=== PATIENT | female | born 1985 | race Caucasian/White ===

== ENCOUNTER 2017-06-21 12:00 | Outpatient (CLI) | payer OTHER ==
[2017-06-21 13:44] LABS: MEAN CORPUSCULAR HEMOGLOBIN 30.7 pg (27.0-31.0); MEAN CORPUSCULAR HGB CONC 34.2 g/dL (32.0-36.0); MEAN CORPUSCULAR VOLUME 89.8 fL (81.0-99.0); MEAN PLATELET VOLUME 8.3 fL (7.9-10.8); RED BLOOD COUNT 3.91 10^6/uL (4.20-5.40); RED CELL DISTRIBUTION WIDTH 13.5 % (12.0-15.0); WHITE BLOOD COUNT 13.7 x10^3/uL (4.8-10.8)
== END 2017-06-21 12:01 | disposition home or self-care (01) ==
LOC: LAB 12:00
PROVIDERS: ATTEND Registered Nurse
DX: Z34.82 Encounter for supervision of other normal pregnancy, second trimester (principal)
CPT/HCPCS: 36415; 82950; 86850

== ENCOUNTER 2017-07-12 07:51 | Outpatient (CLI) | payer OTHER | END 2017-07-12 07:52 | disposition home or self-care (01) | LOC: LAB 07:51 | PROVIDERS: ATTEND Registered Nurse | DX: R73.02 Impaired glucose tolerance (oral) (principal) | CPT/HCPCS: 36415; 82951 ==

== ENCOUNTER 2017-08-09 09:42 | Outpatient (CLI) | payer OTHER | END 2017-08-09 09:43 | disposition home or self-care (01) | LOC: LAB.R 09:42 | PROVIDERS: ATTEND Registered Nurse | DX: Z36.85 Encounter for antenatal screening for Streptococcus B (principal) | CPT/HCPCS: 87081 ==

== ENCOUNTER 2017-08-31 11:18 | Inpatient (IN) | payer OTHER ==
[2017-08-31 12:02] LABS: RUPTURE OF MEMBRANES PLUS POSITIVE (NEGATIVE)
[2017-08-31] MEDS ORDERED: SODIUM CHLORIDE FLUSH 0.9% 10 ML SYRINGE IVP PRN (14:11)
[2017-08-31] MEDS ORDERED: ONDANSETRON 4 MG/2 ML VIAL IVP PRN (14:11)
[2017-08-31] MEDS ORDERED: NALBUPHINE 20 MG/ML AMP IVP PRN (14:18)
--- NOTE | 2017-08-31 14:30 | HISTORY & PHYSICAL EXAMINATION ---
Admit History - Instructions [place]/Slash: -Left hand click circles element as positive or present. -Right hand click slashes element as negative or not present. - Visit Reason Visit Reason: Membranes rupture (08/31/2017 @ 00:00) - : 1 Parity: 0 Premature: 0 Ectopic: 0 : 0 Care: positive: [facility] (9 visits; total visits: 11), [facility] ( transfer of care @ 23 weeks' gestation: 2 visits there) Risk/History: positive: None Complications This : positive: None Smoking Status: Never smoker - Mother's Labs Mother's Blood Type: positive: A Mother's RH: positive: Positive GBS: positive: Group B Step Negative Rubella Status: positive: Immune Physical - Abdominal Exam Vital Signs: Temp Pulse Resp BP Pulse Ox 36.7 C 110 H 18 123/69 99 08/31/17 11:39 08/31/17 11:39 08/31/17 11:39 08/31/17 11:39 08/31/17 11:39 Contraction Frequency (min/apart): rare Contraction Intensity: positive: Mild Uterine Resting Tone: positive: Soft - Monitoring Heart Rate Baseline: 145 Strip Review: positive: Category I - Presentation Presentation: positive: Vertex - Vaginal Exam Membranes: positive: Membranes ruptured (ROM + positive) Dilation (in cm): deferred secondary to PROM, no labor - Speculum Exam Speculum Exam Performed: positive: No Findings: positive: Gross leak, Other (ROM + positive) - Other Notes Labor Progress Note/Additional Text: Alisa Arnett is a 31 yo @ 39w1d by first trimester US, consistent w/ menstrual dating. She received care at [facility] beginning at 10 weeks' gestation & was seen there for 2 visits prior to transferring care to [facility], where she was seen for 9 visits. She gained 31 pounds throughout her & had an uneventful course w/ all labs WNL & FAS WNL. She screened negative for GBS @ 36 weeks' getation. She presents today w/ complaint of LOF, which began slowly @ 00:00 & has continued since. CAF noted & ROM + testing positive. She has had an occasional contraction since that time , no vaginal bleeding, +FM. She is not uncomfortable. She strongly desires a low intervention labor/delivery & is hoping for an unmedicated . She is well-supported by her , Saud. She underwent SVE w/ membrane stripping on 08/27/17 & was at that point 3. PMH: anxiety & depression for which she is presently untreated; anxious t/o , declined intervention; pityriasis rosea w/o persistent s/sx PSH: none SocHx: denies tobacco/ETOH/drugs; to Saud, who is , denies DV; works f/t as an occupational therapist; hx depression/anxiety w/o tx @ present; plans to relocate to [place] shortly s/p delivery Gynhx: hx recurrent vulvovaginal aj, no hx STI OBhx: primiparous ROS: GEN: +FATIGUE, NO FEVER/CHILLS HEENT: DENIES TAO/VISION CHANGES RESP: DENIES SOB/DYSPNEA/WHEEZING/COUGH CARDIAC: DENIES CP/SOB/PALPITATIONS GI: SOME DIARRHEA, NO N/V : +LOF, NO BLEEDING, NO LESIONS, NO ABNORMAL D/C OB: OCC CONTRACTION, MINIMALLY UNCOMFORTABLE, +LOF, NO VAGINAL BLEEDING, +FM MS: LUMBAR PAIN, NO SWELLING, FROM SKIN: DENIES LESION, NO PRURITUS NEURO: NO NUMBNESS/TINGLING/WEAKNESS PSYCH: +ANXIOUS, NO DEPRESSION PE: GEN: AAOX3, ANXIOUS GRAVID FEMALE HEENT: GROSSLY NORMOCEPHALIC, ATRAUMATIC RESP: LUNGS B/L CTA T/O CARDIAC: RRR NLS1S2, NO MURMUR GI: ABD GRAVID, NT, ND, PALPABLE MOVEMENT, LIE LONGITUDINAL, PRESENTATION CEPHALIC, EFW 7# : NO LESION, +GROSS LEAKAGE OF CAF, NO BLEEDING OB: EFM: BL 145BPM, + ACCELS, NO DECELS, MOD XIN; TOCO: OCC UC, PALPABLY MILD; SVE DEFERRED SECONDARY TO UNFAVORABLE 4 DAYS AGO & ROM X14.5 HOURS MS: FROM T/O, NO EDEMA, NO ERYTHEMA SKIN: NO LESION, C/D/I, WARM, WELL-PERFUSED NEURO: NO FOCAL DEFICIT PSYCH: ANXIOUS, OTHERWISE NORMAL MOOD/AFFECT Plan for Labor - Plan For Labor Plan for Labor: ASSESSMENT: 31 Y/O @ 39W1D W/ PROM X14.5 HOURS, GBS NEG, AFEBRILE FHTS CAT I ADEQUATE PAIN CONTROL W/O ANALGESIA/ANESTHESIA DESIRES LIMITED INTERVENTION PLAN: 1. REVIEWED ALL OPTIONS FOR MANAGEMENT, INCLUDING ACOG RECOMMENDATION FOR IMMEDIATE IOL S/P ROM 2. REVIEWED RATIONALE FOR IOL S/P ROM & IMPLICATIONS OF PROM, NO LABOR @ THIS POINT 3. REVIEWED OPTIONS FOR IOL, RISKS/BENEFITS/MOA/SE PROFILE/ALTERNATIVES, PT ELECTS BUCCAL MISOPROSTOL ADMINISTRATION, WILL BEGIN 25MCG BC Q 4 HOURS 4. PT DESIRES UNMEDICATED DELIVERY, REVIEWED ALL OPTIONS FOR PAIN MANAGEMENT 5. REVIEWED RISK FOR INFECTION & PREVENTION OF INFECTION, REVIEWED MINIMAL SVE, NO BASELINE CERVICAL EXAM 6. REVIEWED OPTIMAL MATERNAL POSITIONING 7. ASSESS CERVICAL STATUS W/ CLINICAL INDICATION, NOT OTHERWISE 8. ADMIT
[2017-08-31] MEDS: miSOPROStol 100 MCG TABLET BC SCH (15:26)
[2017-08-31] MEDS: SODIUM CHLORIDE FLUSH 0.9% 10 ML SYRINGE IVP SCH (17:25)
[2017-08-31 17:48] LABS: BASOPHILS % (AUTO) 0.2 %; EOSINOPHILS # (AUTO) 0.1 10^3/uL (0.0-0.7); EOSINOPHILS % (AUTO) 0.5 %; HGB - HEMOGLOBIN 12.9 g/dL (12.0-16.0); LYMPHOCYTES # (AUTO) 1.6 10^3/uL (1.5-3.5); LYMPHOCYTES % (AUTO) 11.2 %; MEAN CORPUSCULAR HEMOGLOBIN 28.8 pg (27.0-31.0); MEAN CORPUSCULAR HGB CONC 32.9 g/dL (32.0-36.0); MEAN CORPUSCULAR VOLUME 87.7 fL (81.0-99.0); MEAN PLATELET VOLUME 9.4 fL (7.9-10.8); MONOCYTES # (AUTO) 1.2 10^3/uL (0.0-1.0); MONOCYTES % (AUTO) 8.5 %; NEUTROPHILS # (AUTO) 11.1 10^3/uL (1.5-6.6); NEUTROPHILS % (AUTO) 79.6 %; PLT - PLATELET COUNT 164 10^3/uL (130-450); RED BLOOD COUNT 4.47 10^6/uL (4.20-5.40); RED CELL DISTRIBUTION WIDTH 13.9 % (12.0-15.0)
--- NOTE | 2017-08-31 23:50 | PROVIDER PROGRESS NOTE ---
Labor Progress Note - Uterine Monitoring Uterine Monitoring Mode: positive: Palpation Contraction Frequency (min/apart): 2 Contraction Intensity: positive: Strong Uterine Resting Tone: positive: Soft - Monitoring Monitor Mode: positive: Doppler/auscultation (No decreases heard, increases heard, reassuring) Heart Rate Baseline: 130 - Vaginal Exam Dilation (in cm): 8 Effacement (%): 100 Station: 1 Cervical Position: Anterior (per RN, change from 5/100/0 @ 22:15) - Labor Progress Note Labor Progress Note/Additional Text: S: Alisa is increasingly uncomfortable, reporting urge to push w/ uterine contractions. She is standing & rocking, using diversionary activity to cope w / her contractions. She is well-supported by her , Saud, and her hired auto self service station attendant, Sylvie. O: VS: T 98.5, HR 99, BP 120/84, RR 18 Doptones: 130s baseline, no decreases heard, increases heard Uterine contractions strong by palpation, occurring q2-3 min, lasting 90 seconds SVE per RN: 8/100/+1, changed from 5/100/0 over the course of 1.5 hours (22:15- 23:45) A: 31 y/o @ 39w1d by 1st trimester US in active spontaneous labor s/p sinle dose buccal misoprostol 25mcg @ 1500 SROM for CAF @ 00:00, for a total ruptured duration of 23 hours, 45 minutes, afebrile GBS negative FHTs reassuring by intermittent auscultation Adequate pain control w/ diversionary activity, does not desire analgesia/ anesthesia Rapid, progressive cervical change P: 1. Labor support t/o transition phase 2. Anticipate 2nd stage labor shortly 3. Ongoing careful monitoring of maternal temperature, FHTs
[2017-09-01] MEDS ORDERED: OXYTOCIN 10 UNIT/ML VIAL ONE (00:02)
[2017-09-01] MEDS ORDERED: LIDOCAINE 1% 50 ML MDV ONE (00:03)
--- NOTE | 2017-09-01 01:15 | PROVIDER PROGRESS NOTE ---
Labor Progress Note - Uterine Monitoring Uterine Monitoring Mode: positive: Palpation Contraction Frequency (min/apart): 5-7 Contraction Intensity: positive: Moderate to strong Uterine Resting Tone: positive: Soft - Monitoring Monitor Mode: positive: Doppler/auscultation (+ increases, no decreases) Heart Rate Baseline: 140 - Vaginal Exam Dilation (in cm): 10 Effacement (%): 100 Station: 0 (caput @ +1, position TRACIE) - Labor Progress Note Labor Progress Note/Additional Text: Alisa has been pushing w/ limited effort over a period of 1.25 hours w/ minimal descent. FHTs are consistently reassuring by doppler auscultation. Uterine contractions have become less frequent. Alisa declines anesthesia/analgesia. Will augment w/ Pitocin per protocol if no further descent by 2 hours s/p complete dilatation. SROM x25.25 hours, afebrile.
[2017-09-01] MEDS ORDERED: OXYTOCIN/SODIUM CHLORIDE 500 ML IV ONE (01:19)
[2017-09-01] MEDS ORDERED: LACTATED RINGERS 1,000 ML IV ONE ×3 (01:20→05:17)
--- NOTE | 2017-09-01 02:32 | PROVIDER PROGRESS NOTE ---
Labor Progress Note - Uterine Monitoring Uterine Monitoring Mode: positive: Palpation Contraction Frequency (min/apart): 2-5 Contraction Intensity: positive: Moderate Uterine Resting Tone: positive: Soft - Monitoring Monitor Mode: positive: Doppler/auscultation (+increases, +decreases to 110s @ peak of uterine contraction, return to 130bpm by cessation of uterine contraction) Heart Rate Baseline: 130 - Vaginal Exam Dilation (in cm): 10 Effacement (%): 100 Station: 0 (caput @ +1) - Labor Progress Note Labor Progress Note/Additional Text: Alisa has been pushing w/ sporadic strong effort x2.5 hours w/ minimal descent. She was initially resistant to Pitocin augmentation & now is in agreement. FHTs by intermittent auscultation have been reassuring to this point. She has been ruptured for a total of 26.5 hours & is afebrile, GBS negative. position is TRCAIE, significant caput, minimal molding. Reviewed implications of present clinical scenario w/ pt & partner. Hi Low Truck Driver counseling patient regarding positioning, reviewed that she has pushed in all positions without significant impact on either expulsive effort or descent. Will begin Pitocin infusion @ 2mU/min & titrate to effective contraction pattern, CEFM & tocometry now indicated. Pt declines analgesia/anesthesia @ this time.
[2017-09-01] MEDS: OXYTOCIN/SODIUM CHLORIDE 500 ML IV SCH (02:51)
--- NOTE | 2017-09-01 03:09 | PROVIDER PROGRESS NOTE ---
Labor Progress Note - Uterine Monitoring Uterine Monitoring Mode: positive: External toco Contraction Frequency (min/apart): 2-4 Contraction Intensity: positive: Moderate Uterine Resting Tone: positive: Soft - Monitoring Monitor Mode: positive: External ultrasound Heart Rate Baseline: 130 Heart Rate Variability: positive: Moderate (6-25 bmp) Accelerations: positive: Present, 15x15 Decelerations: positive: Early Strip Review: positive: Category I - Vaginal Exam Dilation (in cm): 10 Effacement (%): 100 Station: 0 (caput @ +1) - Labor Progress Note Labor Progress Note/Additional Text: Alisa has been actively pushing [id number], 7 minutes w/o descent beyond 0 station; significant caput, minimal molding. Pitocin infusing @ 4mU/min, FHTs cat I w/ early decelerations w/ expulsive efforts. Alisa is exhausted, despite being well-supported by her & her forest scientist. She will receive epidural anesthesia. Consult w/ Dr. Brandon MD, back-up HAT STEAMER, who concurs w/ epidural placement, IUPC placement & titration of Pitocin to achieve adequate contraction pattern by MVU, reassess x2 hours s/p achievement of adequate labor , earlier if clearly adequately laboring by MVU w/ placement of IUPC. Anesthesia notified, epidural requested & bolus infusing. Reviewed plan of care w/ pt, partner, curtis, RN @ bedside; all in agreement, without concerns.
[2017-09-01] MEDS ORDERED: ROPIVACAINE 0.5% PF 20 ML AMPULE ONE (03:24)
[2017-09-01] MEDS ORDERED: fent/BUPIV 2 MCG/0.125% 0 ML EP ONE (03:30)
--- NOTE | 2017-09-01 04:27 | PROVIDER PROGRESS NOTE ---
Labor Progress Note - Uterine Monitoring Uterine Monitoring Mode: positive: External toco Contraction Frequency (min/apart): 1-2 Contraction Intensity: positive: Moderate to strong Uterine Resting Tone: positive: Soft - Monitoring Monitor Mode: positive: External ultrasound Heart Rate Baseline: 120 Heart Rate Variability: positive: Moderate (6-25 bmp) Accelerations: positive: Present, 15x15 Decelerations: positive: Late (to naila in 80s) Strip Review: positive: Category II - Vaginal Exam Dilation (in cm): 10 Effacement (%): 100 Station: 0 - Labor Progress Note Labor Progress Note/Additional Text: Alisa has been actively pushing x3.5hrs without descent beyond 0 station. Anesthesia attempted x6 to place epidural w/o success. Pt received 5mg nubain IVP w/ some effect. Variability remains moderate, non-repetitive late decelerations; no evidence of hypoxemia @ this time. FSE placed w/o difficulty. Pt w/ ongoing urge to push. 2nd anesthesia provider called to come to hospital for evaluation & attempt to place epidural. Dr. Brandon MD, aware of clinical scenario, called to hospital to evaluate for 2nd stage arrest. Encouraged pt to breathe through contractions w/o expulsive efforts as much as she is able.
--- NOTE | 2017-09-01 04:52 | PROVIDER PROGRESS NOTE ---
Labor Progress Note - Uterine Monitoring Uterine Monitoring Mode: positive: External toco Contraction Frequency (min/apart): 1-2 Contraction Intensity: positive: Moderate to strong Uterine Resting Tone: positive: Soft - Monitoring Monitor Mode: positive: Spiral electrode Heart Rate Baseline: 135 Heart Rate Variability: positive: Moderate (6-25 bmp) Accelerations: positive: Present, 15x15 Decelerations: positive: Late (isolated prolonged deceleration s/p contraction w/ expulsive effort to naila in 60s w/ return to baseline w/ intrauterine resuscitative measures) Strip Review: positive: Category II - Vaginal Exam Dilation (in cm): 10 Effacement (%): 100 Station: 0 (caput @ +1) - Labor Progress Note Labor Progress Note/Additional Text: Alisa continues to push w/ uterine contractions. Dr. Brandon MD, @ bedside to evaluate. 2nd anesthesia provider present to attempt epidural placement. During consultation, pt experienced FHT deceleration s/p expulsive effort to naila in 60s w/ return to baseline over a period of 100 seconds w/ intrauterine resuscitative efforts. Terbutaline 0.25mg SQ x1 administered. No further descent s/p 4 hours of active pushing. Will proceed to c/s--anesthesia to attempt to place spinal for surgery--if unsuccessful, will perform under general. Dr. Brandon MD, @ bedside, consenting patient for operative delivery.
[2017-09-01] MEDS ORDERED: TERBUTALINE 1 MG/ML VIAL SUBQ ONE ×2 (04:53→05:40)
[2017-09-01] MEDS ORDERED: CITRIC ACID/SODIUM CITRATE 15 ML UDC PO ONE (05:02)
[2017-09-01] MEDS ORDERED: BUPIVACAINE 0.5% PF 10 ML VIAL ONE (06:31)
[2017-09-01] MEDS ORDERED: BUPIVACAINE 0.5% PF 10 ML VIAL IM ONE (06:31)
[2017-09-01] MEDS ORDERED: EPINEPHrine 1 MG/ML AMP SUBQ ONE (06:31)
[2017-09-01] MEDS ORDERED: EPINEPHrine 1 MG/ML AMP ONE (06:38)
[2017-09-01] MEDS ORDERED: diphenhydrAMINE 25 MG CAPSULE PO PRN (06:56)
[2017-09-01] MEDS ORDERED: SODIUM CHLORIDE FLUSH 0.9% 10 ML SYRINGE IVP PRN (06:56)
[2017-09-01] MEDS ORDERED: oxyCODONE 5 MG TABLET PO PRN (06:56)
[2017-09-01] MEDS ORDERED: HYDROmorphone PCA 20MG/100ML IV PRN (07:04)
--- NOTE | 2017-09-01 07:14 | DELIVERY NOTE ---
Delivery Note - Labor Labor: positive: Augmented by oxytocin - Delivery Method Delivery Method: positive: Primary - Presentation Presentation: positive: Vertex, GRETTA - left occiput anterior, TRACIE - right occiput anterior - Nuchal Cord Nuchal Cord: positive: None (Cord was over the right shoulder) - Anesthetic Anesthetic Type: Anesthetic: positive: Bupivicaine - 0.5% plain (with Epi) Volume: positive: Other (20 ml) - Amniotic Fluid Description Amniotic Fluid Description: positive: Clear - Delivery Outcome Delivery Outcome: positive: Livebirth - [place]: positive: Stimulated, Warmed [place] sex: positive: Female (Apgars 6/9 weight 6 lb 12 oz) - Cord Cord: positive: 3 vessels - Placenta Placenta: positive: Intact, Manual removal - Estimated Blood Loss Estimated Blood Loss (in cc): 500 - Post Delivery Events Post Delivery Events: positive: Unplanned (For arrest of decent and cord compression)
[2017-09-01] MEDS: SODIUM CHLORIDE FLUSH 0.9% 10 ML SYRINGE IVP SCH ×4 (08:30→18:38)
[2017-09-01] MEDS: LACTATED RINGERS 1,000 ML IV SCH ×2 (08:39→18:39)
[2017-09-01] MEDS: KETOROLAC 30 MG/ML VIAL IV SCH ×2 (13:03→18:38)
[2017-09-01] MEDS: ACETAMINOPHEN 500 MG TABLET PO SCH ×2 (14:53→23:38)
[2017-09-01] MEDS: DOCUSATE SODIUM 100 MG CAPSULE PO SCH ×2 (16:17→21:21)
[2017-09-01] MEDS: SIMETHICONE CHEW 80 MG TABLET PO SCH ×2 (16:18→18:39)
[2017-09-02] MEDS: KETOROLAC 30 MG/ML VIAL IV SCH ×2 (00:45→06:35)
[2017-09-02] MEDS: SODIUM CHLORIDE FLUSH 0.9% 10 ML SYRINGE IVP SCH ×3 (00:45→00:52)
[2017-09-02] MEDS: miSOPROStol 100 MCG TABLET BC SCH ×5 (00:50→00:55)
[2017-09-02] MEDS: ACETAMINOPHEN 500 MG TABLET PO SCH ×3 (00:51→17:31)
[2017-09-02] MEDS: OXYTOCIN/SODIUM CHLORIDE 500 ML IV SCH (00:53)
[2017-09-02] MEDS: LACTATED RINGERS 1,000 ML IV SCH (04:26)
[2017-09-02] MEDS ORDERED: KETOROLAC 30 MG/ML VIAL ONE (06:40)
[2017-09-02 07:22] LABS: BASOPHILS # (AUTO) 0.1 10^3/uL (0.0-0.1); BASOPHILS % (AUTO) 0.3 %; EOSINOPHILS % (AUTO) 0.2 %; LYMPHOCYTES # (AUTO) 2.1 10^3/uL (1.5-3.5); LYMPHOCYTES % (AUTO) 11.4 %; MEAN CORPUSCULAR HEMOGLOBIN 29.6 pg (27.0-31.0); MEAN CORPUSCULAR HGB CONC 33.6 g/dL (32.0-36.0); MEAN CORPUSCULAR VOLUME 88.2 fL (81.0-99.0); MEAN PLATELET VOLUME 9.1 fL (7.9-10.8); MONOCYTES # (AUTO) 1.6 10^3/uL (0.0-1.0); MONOCYTES % (AUTO) 8.7 %; NEUTROPHILS # (AUTO) 14.7 10^3/uL (1.5-6.6); NEUTROPHILS % (AUTO) 79.4 %; PLT - PLATELET COUNT 165 10^3/uL (130-450); RED BLOOD COUNT 3.72 10^6/uL (4.20-5.40); RED CELL DISTRIBUTION WIDTH 14.1 % (12.0-15.0); WHITE BLOOD COUNT 18.5 x10^3/uL (4.8-10.8)
--- NOTE | 2017-09-02 07:56 | PROCEDURE REPORT ---
DATE OF SERVICE: 09/01/2017 Physician: Jamaal Taylor MD PREOPERATIVE DIAGNOSES 1. 39.2 weeks. 2. Arrest of descent. 3. Repetitive decelerations. POSTOPERATIVE DIAGNOSES 1. 39.2 weeks. 2. Arrest of descent. 3. Repetitive decelerations. 4. Cord compression over the right shoulder. PROCEDURE PERFORMED: Primary low transverse section. SURGEON: Jamaal Taylor MD CREATIVE TECHNOLOGIST: MAGUI Samuel. ANESTHESIA: Donn Miller CRNA general via LMA. FINDINGS: Live female infant, Apgars 6 and 9, weighing 6 pounds 12 ounces. Cord was compressed over the right shoulder. Amniotic fluid was noted to be clear. Time of delivery was 0551. COMPLICATIONS: None. ESTIMATED BLOOD LOSS: 500 mL SPECIMENS: Cord gases as well as placenta to pathology. PROCEDURE: The patient was placed in the supine position with a roll under the right hip. Scalp electrode was cut and at this point she was prepped and draped in the usual fashion. A timeout was performed during this time, which the patient was identified and the procedure was confirmed. A general anesthetic was administered. The cord were secured by anesthesia and at this point, a Pfannenstiel incision was carried down through the subcutaneous tissue to the fascia. The fascia was incised transversely. Then, using both blunt and sharp dissection, was freed from rectus abdominis and pyramidalis. At this point, the rectus was split along the midline. Peritoneum was entered high. Care was taken to avoid injury to bowel or bladder. A bladder flap was then developed using both blunt and sharp dissection and a low transverse uterine incision was accomplished using a 10 blade with bandage scissors and finger spread technique. At this point, the cord was encountered and noted to be lodged over the right shoulder. The infant was expeditiously delivered, the cord was doubly clamped and the infant was handed to the nursery team standing by. Cord was then clamped and then cord blood samples were obtained. The placenta was manually delivered. The uterus was exteriorized, wrapped in the moist lap and cleansed in the internal portion with a dry lap. At this point, the lower portion of the uterine incision was grasped with ring forceps and the incision itself was closed using 0 Vicryl in a running locking suture with an imbricating layer of 0 Vicryl. The wound was inspected and there was evidence of good hemostasis. The cul-de-sac was then suctioned and estimated blood loss was obtained at this time. The cul-de-sac was then irrigated with copious amounts of sterile saline. Uterus delivered back in the abdominal cavity and the gutters were likewise irrigated. The uterine incision was inspected and no bleeding was noted. The peritoneum was then closed utilizing 2-0 Vicryl. The rectus was reapproximated using a looped PDS. Care was taken to try to bury the knot on the right side. Subcutaneous tissue was closed utilizing 2-0 Vicryl and the incision itself was closed using 4-0 Monocryl. At this point, the incision was dressed with Mastisol, Steri- Strips and then injected with 0.5% Marcaine with epinephrine. The dressing was applied. The patient was taken to recovery in stable condition. Sponge and needle counts were correct. TD: 09/02/2017 06:36 JUANCARLOS
[2017-09-02] MEDS: SIMETHICONE CHEW 80 MG TABLET PO SCH ×2 (07:57→17:31)
[2017-09-02] MEDS: DOCUSATE SODIUM 100 MG CAPSULE PO SCH ×2 (07:57→21:10)
--- NOTE | 2017-09-02 08:27 | PROVIDER PROGRESS NOTE ---
Subjective - General Admit Date: 08/31/17 Procedure Date: 09/01/17 Post Op Days: 1 Procedure Performed: Primary lowtransverse Csection - Review of Systems Wound/Incisions: positive: Dressing dry and intact General: positive: No symptoms (Pain 2/10, notes good pain control. Passing flatus. Pt was very fatigued last night. improved this AM.). negative: Fever Pulmonary: positive: No symptoms Cardiovascular: positive: No symptoms Gastrointestinal: positive: No symptoms Objective - Patient Data Reviewed Vital Signs: Yes Vital Signs: Vital Signs x48h Temp Pulse Resp BP Pulse Ox 09/02/17 07:38 36.9 C 86 16 109/71 99 09/02/17 04:28 16 09/02/17 03:23 36.7 C 91 16 103/60 97 Weight: Weight 08/31/17 09/01/17 09/02/17 23:59 23:59 23:59 Weight (kg) 61.689 kg Intake & Output: Intake and Output Totals x24h 08/31/17 09/01/17 09/02/17 23:59 23:59 23:59 Intake Total 1999 1678.333 Output Total 3160 1400 Balance -1160 278.333 - Lab Results Lab Results: 09/02/17 07:05 Other Lab Results: Lab Results x24hrs 09/02/17 Range/Units 07:05 WBC 18.5 H (4.8-10.8) x10^3/uL RBC 3.72 L (4.20-5.40) 10^6/uL Hgb 11.0 L (12.0-16.0) g/dL Hct 32.8 L (37.0-47.0) % MCV 88.2 (81.0-99.0) fL MCH 29.6 (27.0-31.0) pg MCHC 33.6 (32.0-36.0) g/dL RDW 14.1 (12.0-15.0) % Plt Count 165 (130-450) 10^3/uL MPV 9.1 (7.9-10.8) fL Neut # 14.7 H (1.5-6.6) 10^3/uL Lymph # 2.1 (1.5-3.5) 10^3/uL Grainger # 1.6 H (0.0-1.0) 10^3/uL Eos # 0.0 (0.0-0.7) 10^3/uL Baso # 0.1 (0.0-0.1) 10^3/uL Absolute Nucleated RBC 0.00 x10^3/uL Nucleated RBC % 0.0 /100WBC - Current Medications Current Medications: Current Medications Generic Name Dose Route Start Last Admin Trade Name Freq PRN Reason Stop Dose Admin Acetaminophen 1,000 mg 09/01/17 07:00 09/02/17 07:57 Tylenol PO 1,000 mg Q8H MARILYN Administration Docusate Sodium 100 mg 09/01/17 09:00 09/02/17 07:57 Colace 100mg Capsule PO 100 mg BID MARILYN Administration Oxytocin/Sodium Chloride 500 mls @ 2 mls/hr 09/01/17 03:00 09/02/17 00:53 Pitocin/Sodium Chloride IV Not Given TITR [facility] Protocol 2 MILLIUNIT/MIN Nalbuphine HCl 5 mg 08/31/17 14:18 09/01/17 04:20 Nubain IVP 5 mg Q3HR PRN Administration PAIN Ondansetron HCl 4 mg 08/31/17 14:11 09/01/17 08:30 Zofran Inj IVP 4 mg Q4H PRN Administration Nausea / Vomiting Simethicone 80 mg 09/01/17 14:00 09/02/17 07:57 Mylicon PO 80 mg TID MARILYN Administration Sodium Chloride 10 ml 09/01/17 09:00 09/02/17 00:52 Normal Saline Flush 0.9% IVP Not Given 0100,0900,1700 [facility] - Physical Exam Wound/Incisions: positive: Dressing dry and intact General Appearance: positive: No acute distress, Alert Respiratory: positive: Chest non-tender, No respiratory distress, Breath sounds nml Cardiovascular: positive: Regular rate & rhythm, No murmur, No gallop Abdomen: positive: Nml bowel sounds, No distention Back: positive: Nml inspection. negative: CVA tenderness (R), CVA tenderness (L ) Skin: positive: Color nml Extremities: negative: Calf tenderness, Lisa's sign/cords Neurologic/Psychiatric: positive: Oriented x3 Impression/Plan - Problem List Problem List: POD#1 progressing well. Change to 600 Motrin. Remove IV Stop IV and MANUFACTURING ENGINEER Ambulate.
[2017-09-02] MEDS: IBUPROFEN 600 MG TABLET PO SCH ×2 (13:09→20:06)
[2017-09-03] MEDS: ACETAMINOPHEN 500 MG TABLET PO SCH ×3 (01:27→16:42)
[2017-09-03] MEDS: IBUPROFEN 600 MG TABLET PO SCH ×4 (01:28→23:49)
[2017-09-03] MEDS: SIMETHICONE CHEW 80 MG TABLET PO SCH ×2 (09:49→16:44)
[2017-09-03] MEDS: DOCUSATE SODIUM 100 MG CAPSULE PO SCH ×2 (09:49→23:50)
[2017-09-03] MEDS ORDERED: MORPHINE PF 5 MG/10 ML AMP EP ONE (10:49)
[2017-09-03] MEDS ORDERED: OXYTOCIN 10 UNIT/ML VIAL IV ONE (10:49)
[2017-09-03] MEDS ORDERED: DEXAMETHASONE 4 MG/ML VIAL IVP ONE (10:49)
[2017-09-03] MEDS ORDERED: PROPOFOL 200 MG/20 ML VIAL IVP ONE (10:49)
[2017-09-03] MEDS ORDERED: ACETAMINOPHEN 1,000 MG/100 ML 100 ML IV ONE (10:49)
[2017-09-03] MEDS ORDERED: KETAMINE 500 MG/10 ML VIAL IVP ONE (10:49)
[2017-09-03] MEDS ORDERED: KETOROLAC 30 MG/ML VIAL IVP ONE (10:49)
[2017-09-03] MEDS ORDERED: SUCCINYLCHOLINE 200 MG/10 ML VIAL IVP ONE (10:49)
[2017-09-03] MEDS ORDERED: METHYLERGONOVINE 0.2 MG/ML AMP IVP ONE (10:49)
[2017-09-03] MEDS: SODIUM CHLORIDE FLUSH 0.9% 10 ML SYRINGE IVP SCH (20:37)
[2017-09-03] MEDS: OXYTOCIN/SODIUM CHLORIDE 500 ML IV SCH (20:38)
[2017-09-04] MEDS: SIMETHICONE CHEW 80 MG TABLET PO SCH ×3 (02:27→09:28)
[2017-09-04] MEDS: ACETAMINOPHEN 500 MG TABLET PO SCH ×2 (02:27→09:28)
[2017-09-04] MEDS: SODIUM CHLORIDE FLUSH 0.9% 10 ML SYRINGE IVP SCH ×2 (06:10→06:11)
[2017-09-04] MEDS: IBUPROFEN 600 MG TABLET PO SCH ×2 (06:10→09:28)
[2017-09-04] MEDS: OXYTOCIN/SODIUM CHLORIDE 500 ML IV SCH (06:11)
[2017-09-04] MEDS: DOCUSATE SODIUM 100 MG CAPSULE PO SCH (09:29)
--- NOTE | 2017-09-04 10:38 | PROVIDER PROGRESS NOTE ---
Subjective - General Admit Date: 08/31/17 Procedure Date: 09/01/17 Post Op Days: 3 Procedure Performed: Primary lowtransverse Csection - Review of Systems Wound/Incisions: positive: Healing well General: positive: No symptoms (Pain 2/10, notes good pain control. Passing flatus. Pt was very fatigued last night. improved this AM.), Fatigue (Pt notes increasingfatigue. She is not sleeping well. would like to go home afternoon.) . negative: Fever Pulmonary: positive: No symptoms Cardiovascular: positive: No symptoms Gastrointestinal: positive: No symptoms Objective - Patient Data Reviewed Vital Signs: Yes Vital Signs: Vital Signs x48h Temp Pulse Resp BP Pulse Ox 09/04/17 09:20 36.8 C 82 16 119/83 H 99 Intake & Output: Intake and Output Totals x24h 09/02/17 09/03/17 09/04/17 23:59 23:59 23:59 Intake Total 1678.333 Output Total 2825 Balance -1146.667 - Lab Results Lab Results: 09/02/17 07:05 - Current Medications Current Medications: Current Medications Generic Name Dose Route Start Last Admin Trade Name Freq PRN Reason Stop Dose Admin Acetaminophen 1,000 mg 09/01/17 07:00 09/04/17 09:28 Tylenol PO 1,000 mg Q8H MARILYN Administration Docusate Sodium 100 mg 09/01/17 09:00 09/04/17 09:29 Colace 100mg Capsule PO 100 mg BID MARILYN Administration Oxytocin/Sodium Chloride 500 mls @ 2 mls/hr 09/01/17 03:00 09/04/17 06:11 Pitocin/Sodium Chloride IV Not Given TITR [facility] Protocol 2 MILLIUNIT/MIN Ibuprofen 600 mg 09/02/17 12:00 09/04/17 09:28 Motrin PO 600 mg Q6HR MARILYN Administration Nalbuphine HCl 5 mg 08/31/17 14:18 09/01/17 04:20 Nubain IVP 5 mg Q3HR PRN Administration PAIN Ondansetron HCl 4 mg 08/31/17 14:11 09/01/17 08:30 Zofran Inj IVP 4 mg Q4H PRN Administration Nausea / Vomiting Simethicone 80 mg 09/01/17 14:00 09/04/17 09:28 Mylicon PO 80 mg TID MARILYN Administration Sodium Chloride 10 ml 09/01/17 09:00 09/04/17 06:11 Normal Saline Flush 0.9% IVP Not Given 0100,0900,1700 [facility] - Physical Exam Wound/Incisions: positive: Healing well, Dressing dry and intact, No drainage. negative: Erythema General Appearance: positive: No acute distress, Alert Respiratory: positive: Chest non-tender, No respiratory distress, Breath sounds nml Cardiovascular: positive: Regular rate & rhythm, No murmur, No gallop Abdomen: positive: Non-tender, No organomegaly, Nml bowel sounds, No distention Back: positive: Nml inspection. negative: CVA tenderness (R), CVA tenderness (L ) Skin: positive: Color nml, No rash, Warm, Dry Extremities: negative: Calf tenderness, Lisa's sign/cords Neurologic/Psychiatric: positive: Oriented x3 Impression/Plan - Problem List Problem List: POD #3 from primary low transverse Progressing well Fatigue secondary to lack of sleep Send home Discharge Meds Oxycodone 5 gm #15 Mortin 600 mg #30 Colace 100 mg #30 Discussed contraception reviewed PP RTC 1 and 6 weeks
--- NOTE | 2017-09-04 11:15 | Discharge Plan ---
Discharge Plan Disposition: 01 Home, Self Care Condition: Good Diet: Regular Activity Restrictions: No Restrictions Shower Restrictions: No Driving Restrictions: Yes (not while on narcotics) Instruction Topics: No Smoking: If you smoke, Please STOP! Call for help. Follow-up with: Jamaal Taylor MD [Provider Admit Priv/Credential] -
[2017-09-04 12:07] VITALS: BP 137/85
--- NOTE | 2017-09-18 13:21 | DISCHARGE SUMMARY ---
Physician: Jamaal Taylor MD DATE OF ADMISSION: 08/31/2017 DATE OF DISCHARGE: 09/04/2017 ADMITTING DIAGNOSES 1. A 39.1 gestation. 2. Spontaneous rupture of membranes. 3. No labor. DISCHARGE DIAGNOSES 1. A 39.1 gestation. 2. Spontaneous rupture of membranes. 3. No labor. 4. Arrest of descent. 5. Bandolier cord. PROCEDURES 1. Pitocin augmentation. 2. Attempted epidural anesthesia. 3. Primary low transverse section. PRESENTING HISTORY: The patient is a 31-year-old G1, P0 female who is 39.1 weeks by first trimester ultrasound as well as last menstrual period. She initially received her OB care at [facility] beginning at 10 weeks gestation and was seen for her first 2 visits there. She transferred to [facility] for the remainder of her . She had a 31-pound weight gain. She had normal labs. Her 50 gram Glucola was noted to be normal. The morning of admission she was thought to have rupture of membranes at midnight on the morning of the . She did not present to Labor and Delivery until roughly 2:00 the same day. LABORATORIES: The patient's admitting white count was 14.0, hemoglobin 12.9, hematocrit 39.2, platelet count was 164. Her post-delivery CBC showed a white count of 18.5, hemoglobin 11.0, hematocrit 32.8 with platelets of 165. HOSPITAL COURSE: The patient was admitted and because of the patient's desires, she was allowed to remain another 4 hours without starting Pitocin. She showed progress to complete at roughly 1:00 the following morning. She was allowed to push. The entire labor in as far as this part of her labor course was without any epidural or pain medications. After 2 hours of pushing, she attempted an epidural, but this was unsuccessful. She developed a category 2 strip and following roughly 3-1/2 hours of pushing was unable to push the out and it was decided to proceed to section. At time of , a live female with Apgars 6 and 9 weighing 6 pounds 12 ounces was delivered. At time of section, she was noted to have a bandolier cord over the shoulder. Her course was unremarkable. Bowel and bladder function returned. She continued to improve with time. She was discharged to home on 09/04/2017 with instructions to follow up in the clinic in 1-2 weeks. DISCHARGE MEDICATIONS 1. Oxycodone 5 mg, #15. 2. Motrin 600 mg, #30. 3. Colace 100 mg, #30. We discussed contraception and blues. TD: 09/18/2017 13:20
== END 2017-09-04 13:30 | disposition home or self-care (01) | DRG 766 ==
LOC: WFO 11:18 → FBP 11:20 → WFO 14:10 → FBP 14:11 → UNDOADMIN 14:11
PROVIDERS: ADMIT Registered Nurse; ATTEND Obstetrics & Gynecology
PROC: 10D00Z1 Extraction of Products of Conception, Low, Open Approach (ICD-10-PCS; principal; 2017-09-01 05:17)
DX: O42.02 Full-term premature rupture of membranes, onset of labor within 24 hours of rupture (principal); O62.1 Secondary uterine inertia; O69.2XX0 Labor and delivery complicated by other cord entanglement, with compression, not applicable or unspecified; O99.344 Other mental disorders complicating childbirth; F41.9 Anxiety disorder, unspecified; Z3A.39 39 weeks gestation of pregnancy; Z37.0 Single live birth
CPT/HCPCS: 36415; 82803; 84112; 85025; 88307; 99213